=== PATIENT | male | born 1980 | race Caucasian/White ===

== ENCOUNTER → 2025-05-18 | Outpatient (CLI) | payer OTHER, SELFPAY ==
[2025-05-18 13:56] LABS: AST(SGOT) 16 U/L (<=37); Alanine Aminotransfer ALT/SGPT 20 U/L (<=46); Albumin, Serum 4.6 g/dL (3.5-5.0); Alkaline Phosphatase 44 U/L (40-129); Anion Gap 12 (5-15); BUN 18 mg/dL (4-19); BUN/Creat Ratio 19.1 RATIO (10-20); Calcium,Total 9.6 mg/dL (7.6-11.0); Carbon Dioxide 22.1 mmol/L (21.0-32.0); Chloride 105 mmol/L (98-108); Cholesterol 198 mg/dL (<=200); Globulin 3.2 g/dL (2.2-4.2); Glucose 97 mg/dL (70-99); Low Density Lipoprotein Calc. 128 mg/dL; PSA,Total- Diagnostic 1.85 ng/mL (0.00-4.00); Potassium 4.1 mmol/L (3.3-5.1); Triglycerides 166 mg/dL; Very Low Density Lipoprotein 33 mg/dL (5-40); cholesterol:hdl ratio screen 5.32
== END | disposition home or self-care (01) ==
LOC: MTLAB 09:36
PROVIDERS: PCP Family Medicine; Referring Provider Family Medicine; Visit Provider Family Medicine
DX: Z00.00 Encounter for general adult medical examination without abnormal findings (principal); R53.83 Other fatigue; R73.01 Impaired fasting glucose; R35.1 Nocturia
CPT/HCPCS: 36415; 80053; 80061; 84153; 84443; 85652